=== PATIENT | female | born 1975 | race Caucasian/White ===

== ENCOUNTER 2017-07-03 15:26 | Emergency (ER) | payer MEDICAID ==
[~2017-07-03] VITALS: Ht 147.3 cm; Wt 67.6 kg
[2017-07-03 15:32] VITALS: Ht 147.3 cm; Wt 67.6 kg
[2017-07-03 17:59] VITALS: BP 151/98
== END 2017-07-03 18:29 | disposition home or self-care (01) ==
LOC: ED 15:26
DX: S00.03XA Contusion of scalp, initial encounter (principal); S80.01XA Contusion of right knee, initial encounter; W17.89XA Other fall from one level to another, initial encounter; Y93.89 Activity, other specified; Y92.89 Other specified places as the place of occurrence of the external cause; Y99.8 Other external cause status